=== PATIENT | female | born 1955 | race Asian ===

== ENCOUNTER → 2017-04-15 | Outpatient (CLI) | payer MEDICAID | LOC: BRMIMAGING 10:50 | PROVIDERS: ATTEND Nurse Practitioner Women's Health | DX: Z13.820 Encounter for screening for osteoporosis (principal); M81.0 Age-related osteoporosis without current pathological fracture; Z95.1 Presence of aortocoronary bypass graft; Z78.0 Asymptomatic menopausal state ==

== ENCOUNTER → 2017-08-20 | Outpatient (CLI) | payer MEDICAID | LOC: CIMAGING 10:18 | DX: Z12.31 Encounter for screening mammogram for malignant neoplasm of breast (principal); Z80.3 Family history of malignant neoplasm of breast ==

== ENCOUNTER → 2018-10-07 | Outpatient (CLI) | payer MEDICAID | LOC: CIMAGING 11:26 | DX: Z12.31 Encounter for screening mammogram for malignant neoplasm of breast (principal); Z80.3 Family history of malignant neoplasm of breast ==